=== PATIENT | male | born 1990 | race Caucasian/White ===

== ENCOUNTER 2016-08-25 10:18 | Emergency (ER) | payer MEDICAID, SELFPAY ==
--- NOTE | 2016-08-25 11:50 | EDDOCDS ---
Physician Documentation [facility] Name: Pramod Rizvi Age: 25 yrs Sex: Male : 1990 Arrival Date: 08/25/2016 Time: 10:18 Bed Triage 1 Private MD: NO PRIMARY PHYSICIAN, . Disposition: 08/25/16 11:42 Discharged to Home/Self Care. Impression: Dental caries, unspecified - with dental abscess #17 tooth. - Condition is Stable. - Discharge Instructions: Dental Abscess. - Prescriptions for Clindamycin HCl 300 mg Oral Capsule - take 1 capsule by ORAL route every 6 hours; 40 capsule. Ultram 50 mg Oral Tablet - take 1 tablet by ORAL route every 6 hours As needed MDD: 4 tabs; 12 tablet. magic mouthwash Mucous Membrane Solution - as directed 5 milliliters by ORAL route 4 times per day As needed gargle, swish, spit. Maalox, Viscous Lidocaine, Liquid Benadryl. 1:1:1; 237 milliliter. - Medication Reconciliation, Local Pharmacy Hours form. - Follow up: Emergency Department; When: As needed; Reason: Worsening of conditions. [facility]: [facility]; When: Call to arrange an appointment; Reason: Recheck today's complaints, Continuance of care, To establish care. - Problem is new. - Symptoms are unchanged. Historical: - Allergies: PENICILLINS (Rash); - Home Meds: 1. Tylenol Unknown Oral (Last dose: 08/24/2016) 2. Ibuprofen Unknown Oral (Last dose: 08/24/2016) - PMHx: none; - PSHx: none; - Social history: Smoking status: Patient uses tobacco products, current every day smoker. No barriers to communication noted, The patient speaks fluent Syrian, Speaks appropriately for age. - Family history: Not pertinent. - : The pt / caregiver states he / she is not on anticoagulants. Home medication list is obtained from the patient. - Exposure Risk Screening:: None identified. Vital Signs: 08/25 10:20 BP 129 / 69; Pulse 72; Resp 16; Temp 97.6(O); Pulse Ox 100% ; Weight 74.84 kg / 164.99 cmb lbs; Height 6 ft. 2 in. (187.96 cm); Pain 6/10; 10:20 Body Mass Index 21.18 (74.84 kg, 187.96 cm) cmb Signatures: Shae WilksRN RN kr3 Lilly Lane RN RN ivetted Giuliana Lane PA-C PA-C dt4 EDNAD
--- NOTE | 2016-08-25 11:50 | EDDOCDS ---
Nurse's Notes [facility] Name: Pramod Rizvi Age: 25 yrs Sex: Male : 1990 Arrival Date: 08/25/2016 Time: 10:18 Bed Triage 1 Private MD: NO PRIMARY PHYSICIAN, . Diagnosis: Dental caries, unspecified-with dental abscess #17 tooth Presentation: 08/25 10:22 Presenting complaint: Patient states: "I think I have have an infection in my gums." Pt ead reports left lower jaw swelling x 2 days, reports tender to touch. Pt states "I just don't have the money to go to the dentist and need an antibiotic. Adult Sepsis Screening: The patient does not have new or worsening altered mentation. Patient's respiratory rate is less than 22. Systolic blood pressure is greater than 100. Patient has a qSOFA score of 0- Negative Sepsis Screen. Suicide/Homicide risk assessment- the patient denies having any suicidal and/or homicidal ideations and does not present with any other emotional, behavioral or mental health complaints. Status: Patient is not a coordinator of genetic services or dependent. Transition of care: patient was not received from another setting of care. 10:22 Acuity: JOI Level 5 ead 10:22 Method Of Arrival: Walkin/Carried/Asstd ead Triage Assessment: 10:24 General: Appears in no apparent distress, Behavior is appropriate for age, cooperative. ead Pain: Location: left jaw and mouth Pain currently is 6 out of 10 on a pain scale. HIV screening NA for this visit Offered previously. Neurological: Level of Consciousness is awake, alert, obeys commands, Oriented to person, place, time. EENT: Reports pain in mouth and left jaw. Respiratory: Airway is patent Respiratory effort is even, unlabored. Derm: Skin is pink, warm & dry. Historical: - Allergies: PENICILLINS (Rash); - Home Meds: 1. Tylenol Unknown Oral (Last dose: 08/24/2016) 2. Ibuprofen Unknown Oral (Last dose: 08/24/2016) - PMHx: none; - PSHx: none; - Social history: Smoking status: Patient uses tobacco products, current every day smoker. No barriers to communication noted, The patient speaks fluent Ukrainian, Speaks appropriately for age. - Family history: Not pertinent. - : The pt / caregiver states he / she is not on anticoagulants. Home medication list is obtained from the patient. - Exposure Risk Screening:: None identified. Screenin:48 Screening information is obtained from the patient. Fall risk: No risks identified. kr3 Assistance ADL's: requires no assistance with activities of daily living. Abuse/DV Screen: The patient / caregiver reports he/she is: not in a situation that causes fear, pain or injury. Nutritional screening: No deficits noted. Advance Directives: Currently, there is no health care proxy. home support is adequate. Assessment: 11:48 General: Appears in no apparent distress, comfortable, Behavior is cooperative. Awake, kr3 alert, oriented. Awake, alert, oriented. Skin warm and dry. Moves all extremities. Respirations unlabored. No apparent distress. The patient / caregiver is instructed regarding the plan of care and ED course. Physical assessment to be completed by PA/AMBREEN. Vital Signs: 10:20 BP 129 / 69; Pulse 72; Resp 16; Temp 97.6(O); Pulse Ox 100% ; Weight 74.84 kg; Height 6 cmb ft. 2 in. (187.96 cm); Pain 6/10; 10:20 Body Mass Index 21.18 (74.84 kg, 187.96 cm) cmb Vitals: 10:20 Log In Time: August 25, 2016 at 10:18. b ED Course: 10:19 Patient visited by Liliana Brown. cmb 10:19 Patient moved to Waiting cmb 10:20 Patient name changed from Pramod\\S\\\\S\\Rizvi\\S\\ to Pramod\\S\\ \\S\\Rizvi. EDMS 10:20 NO PRIMARY PHYSICIAN, . is Private Physician. cmb 10:21 Patient moved to Pre RCE cmb 10:23 Triage Initiated ead 10:34 Patient moved to Triage 1 kr3 11:[address] [facility]. dt4 11:26 Renuka Trinidad MD is Attending Physician. dt4 11:[address] Giuliana Lane PA-C. dt4 11:38 [facility] is Referral Physician. dt4 11:49 Patient has correct armband on for positive identification. kr3 11:49 No IV's were initiated during this patient's visit. No procedures done that require kr3 assistance. Order Results: There are currently no results for this order. Outcome: 11:42 Discharge ordered by Provider. dt4 11:49 Discharge Assessment: patient administered narcotics - no. The following High Risk kr3 Discharge criteria are identified: None. Discharged to home ambulatory. Condition: stable. Discharge instructions given to patient, Instructed on discharge instructions, follow up and referral plans. medication usage, Demonstrated understanding of instructions, medications, Pt was receptive of discharge instructions/ teaching. Prescriptions given X 3. No special radiology studies were completed. Property sent home with patient. 11:49 Patient left the ED. kr3 Signatures: Dispatcher [employer] EDShae Day RN RN kr3 Boshart, Chelsea cmb Dunaway, Emily, RN RN ead Tschudi, Diane, PA-C PA-C dt4 PASCALE
--- NOTE | 2016-08-27 12:51 | EDDOCDS ---
Physician Documentation [facility] Name: Pramod Rizvi Age: 25 yrs Sex: Male : 1990 Arrival Date: 08/25/2016 Time: 10:18 Bed Triage 1 Private MD: NO PRIMARY PHYSICIAN, . Disposition: 08/25/16 11:42 Discharged to Home/Self Care. Impression: Dental caries, unspecified - with dental abscess #17 tooth. - Condition is Stable. - Discharge Instructions: Dental Abscess. - Prescriptions for Clindamycin HCl 300 mg Oral Capsule - take 1 capsule by ORAL route every 6 hours; 40 capsule. Ultram 50 mg Oral Tablet - take 1 tablet by ORAL route every 6 hours As needed MDD: 4 tabs; 12 tablet. magic mouthwash Mucous Membrane Solution - as directed 5 milliliters by ORAL route 4 times per day As needed gargle, swish, spit. Maalox, Viscous Lidocaine, Liquid Benadryl. 1:1:1; 237 milliliter. - Medication Reconciliation, Local Pharmacy Hours form. - Follow up: Emergency Department; When: As needed; Reason: Worsening of conditions. Follow [facility]: [facility]; When: Call to arrange an appointment; Reason: Recheck today's complaints, Continuance of care, To establish care. - Problem is new. - Symptoms are unchanged. Historical: - Allergies: PENICILLINS (Rash); - Home Meds: 1. Tylenol Unknown Oral (Last dose: 08/24/2016) 2. Ibuprofen Unknown Oral (Last dose: 08/24/2016) - PMHx: none; - PSHx: none; - Social history: Smoking status: Patient uses tobacco products, current every day smoker. No barriers to communication noted, The patient speaks fluent [place], Speaks appropriately for age. - Family history: Not pertinent. - : The pt / caregiver states he / she is not on anticoagulants. Home medication list is obtained from the patient. - Exposure Risk Screening:: None identified. Vital Signs: 08/25 10:20 BP 129 / 69; Pulse 72; Resp 16; Temp 97.6(O); Pulse Ox 100% ; Weight 74.84 kg / 164.99 cmb lbs; Height 6 ft. 2 in. (187.96 cm); Pain 6/10; 10:20 Body Mass Index 21.18 (74.84 kg, 187.96 cm) cmb MDM: 14:31 T-Sheet-- Draft Copy was scanned into [employer] and attached to record. gb Signatures: Lexis Elias, Reg Reg Shae Pavon,RN RN kr3 Lilly LaneRN RN eaGiuliana Ordaz, LAURITA SHAY dt4 The chart was reviewed and I authenticate all verbal orders and agree with the evaluation and treatment provided.Attachments: 14:31 T-Sheet-- Draft Copy gb Chart Complete MTDD
--- NOTE | 2016-08-27 12:51 | EDDOCDS ---
Nurse's Notes [facility] Name: Pramod Rizvi Age: 25 yrs Sex: Male : 1990 Arrival Date: 08/25/2016 Time: 10:18 Bed Triage 1 Private MD: NO PRIMARY PHYSICIAN, . Diagnosis: Dental caries, unspecified-with dental abscess #17 tooth Presentation: 08/25 10:22 Presenting complaint: Patient states: "I think I have have an infection in my gums." Pt ead reports left lower jaw swelling x 2 days, reports tender to touch. Pt states "I just don't have the money to go to the dentist and need an antibiotic. Adult Sepsis Screening: The patient does not have new or worsening altered mentation. Patient's respiratory rate is less than 22. Systolic blood pressure is greater than 100. Patient has a qSOFA score of 0- Negative Sepsis Screen. Suicide/Homicide risk assessment- the patient denies having any suicidal and/or homicidal ideations and does not present with any other emotional, behavioral or mental health complaints. Status: Patient is not a food service hotel runner or dependent. Transition of care: patient was not received from another setting of care. 10:22 Acuity: JOI Level 5 ead 10:22 Method Of Arrival: Walkin/Carried/Asstd ead Triage Assessment: 10:24 General: Appears in no apparent distress, Behavior is appropriate for age, cooperative. ead Pain: Location: left jaw and mouth Pain currently is 6 out of 10 on a pain scale. HIV screening NA for this visit Offered previously. Neurological: Level of Consciousness is awake, alert, obeys commands, Oriented to person, place, time. EENT: Reports pain in mouth and left jaw. Respiratory: Airway is patent Respiratory effort is even, unlabored. Derm: Skin is pink, warm & dry. Historical: - Allergies: PENICILLINS (Rash); - Home Meds: 1. Tylenol Unknown Oral (Last dose: 08/24/2016) 2. Ibuprofen Unknown Oral (Last dose: 08/24/2016) - PMHx: none; - PSHx: none; - Social history: Smoking status: Patient uses tobacco products, current every day smoker. No barriers to communication noted, The patient speaks fluent Faroese, Speaks appropriately for age. - Family history: Not pertinent. - : The pt / caregiver states he / she is not on anticoagulants. Home medication list is obtained from the patient. - Exposure Risk Screening:: None identified. Screenin:48 Screening information is obtained from the patient. Fall risk: No risks identified. kr3 Assistance ADL's: requires no assistance with activities of daily living. Abuse/DV Screen: The patient / caregiver reports he/she is: not in a situation that causes fear, pain or injury. Nutritional screening: No deficits noted. Advance Directives: Currently, there is no health care proxy. home support is adequate. Assessment: 11:48 General: Appears in no apparent distress, comfortable, Behavior is cooperative. Awake, kr3 alert, oriented. Awake, alert, oriented. Skin warm and dry. Moves all extremities. Respirations unlabored. No apparent distress. The patient / caregiver is instructed regarding the plan of care and ED course. Physical assessment to be completed by PA/AMBREEN. Vital Signs: 10:20 BP 129 / 69; Pulse 72; Resp 16; Temp 97.6(O); Pulse Ox 100% ; Weight 74.84 kg; Height 6 cmb ft. 2 in. (187.96 cm); Pain 6/10; 10:20 Body Mass Index 21.18 (74.84 kg, 187.96 cm) cmb Vitals: 10:20 Log In Time: August 25, 2016 at 10:18. b ED Course: 10:19 Patient visited by Liliana Brown. cmb 10:19 Patient moved to Waiting cmb 10:20 Patient name changed from Pramod\\S\\\\S\\Rizvi\\S\\ to Pramod\\S\\ \\S\\Rizvi. EDMS 10:20 NO PRIMARY PHYSICIAN, . is Private Physician. cmb 10:21 Patient moved to Pre RCE cmb 10:23 Triage Initiated ead 10:34 Patient moved to Triage 1 kr3 11:[address] [facility]. dt4 11:26 Renuka Trinidad MD is Attending Physician. dt4 11:[address] Giuliana Lane PA-C. dt4 11:38 [facility] is Referral Physician. dt4 11:49 Patient has correct armband on for positive identification. kr3 11:49 No IV's were initiated during this patient's visit. No procedures done that require kr3 assistance. 14:31 T-Sheet-- Draft Copy was scanned into [employer] and attached to record. gb Order Results: There are currently no results for this order. Outcome: 11:42 Discharge ordered by Provider. dt4 11:49 Discharge Assessment: patient administered narcotics - no. The following High Risk kr3 Discharge criteria are identified: None. Discharged to home ambulatory. Condition: stable. Discharge instructions given to patient, Instructed on discharge instructions, follow up and referral plans. medication usage, Demonstrated understanding of instructions, medications, Pt was receptive of discharge instructions/ teaching. Prescriptions given X 3. No special radiology studies were completed. Property sent home with patient. 11:49 Patient left the ED. kr3 Signatures: Dispatcher [employer] Authentication EDMS Lexis Elias, Reg Shae Robert,RN RN kr3 Liliana Brown Emily, RN RN ead Tschudi, Diane, PAThomas PA-C dt4 Chart Complete PASCALE
--- NOTE | 2016-08-27 12:51 | EDDOCDS ---
Physician Documentation [facility] Name: Pramod Rizvi Age: 25 yrs Sex: Male : 1990 Arrival Date: 08/25/2016 Time: 10:18 Bed Triage 1 Private MD: NO PRIMARY PHYSICIAN, . Disposition: 08/25/16 11:42 Discharged to Home/Self Care. Impression: Dental caries, unspecified - with dental abscess #17 tooth. - Condition is Stable. - Discharge Instructions: Dental Abscess. - Prescriptions for Clindamycin HCl 300 mg Oral Capsule - take 1 capsule by ORAL route every 6 hours; 40 capsule. Ultram 50 mg Oral Tablet - take 1 tablet by ORAL route every 6 hours As needed MDD: 4 tabs; 12 tablet. magic mouthwash Mucous Membrane Solution - as directed 5 milliliters by ORAL route 4 times per day As needed gargle, swish, spit. Maalox, Viscous Lidocaine, Liquid Benadryl. 1:1:1; 237 milliliter. - Medication Reconciliation, Local Pharmacy Hours form. - Follow up: Emergency Department; When: As needed; Reason: Worsening of conditions. Follow [facility]: [facility]; When: Call to arrange an appointment; Reason: Recheck today's complaints, Continuance of care, To establish care. - Problem is new. - Symptoms are unchanged. Historical: - Allergies: PENICILLINS (Rash); - Home Meds: 1. Tylenol Unknown Oral (Last dose: 08/24/2016) 2. Ibuprofen Unknown Oral (Last dose: 08/24/2016) - PMHx: none; - PSHx: none; - Social history: Smoking status: Patient uses tobacco products, current every day smoker. No barriers to communication noted, The patient speaks fluent Tajik, Speaks appropriately for age. - Family history: Not pertinent. - : The pt / caregiver states he / she is not on anticoagulants. Home medication list is obtained from the patient. - Exposure Risk Screening:: None identified. Vital Signs: 08/25 10:20 BP 129 / 69; Pulse 72; Resp 16; Temp 97.6(O); Pulse Ox 100% ; Weight 74.84 kg / 164.99 cmb lbs; Height 6 ft. 2 in. (187.96 cm); Pain 6/10; 10:20 Body Mass Index 21.18 (74.84 kg, 187.96 cm) cmb MDM: 14:31 T-Sheet-- Draft Copy was scanned into [employer] and attached to record. gb Signatures: Lexis Elias, Reg Reg Shae Pavon,RN RN kr3 Lilly LaneRN RN eaGiuliana Ordaz, LAURITA SHAY dt4 The chart was reviewed and I authenticate all verbal orders and agree with the evaluation and treatment provided.Attachments: 14:31 T-Sheet-- Draft Copy gb Chart Complete MTDD
== END 2016-08-25 11:49 | disposition home or self-care (01) ==
LOC: M ED 10:18
DX: K04.7 Periapical abscess without sinus (principal); K02.9 Dental caries, unspecified; F17.210 Nicotine dependence, cigarettes, uncomplicated; Z88.0 Allergy status to penicillin

== ENCOUNTER 2017-07-31 14:45 | Emergency (ER) | payer MEDICAID | END 2017-07-31 17:25 | disposition left against medical advice (07) | LOC: M ED 14:45 | DX: K08.89 Other specified disorders of teeth and supporting structures (principal); Z53.21 Procedure and treatment not carried out due to patient leaving prior to being seen by health care provider ==

== ENCOUNTER 2017-12-11 14:21 | Emergency (ER) | payer SELFPAY, MEDICAID, OTHER | END 2017-12-11 15:32 | disposition home or self-care (01) | LOC: M ED 14:21 | DX: K04.7 Periapical abscess without sinus (principal); K02.9 Dental caries, unspecified; R68.84 Jaw pain; K13.79 Other lesions of oral mucosa; H92.02 Otalgia, left ear; Z88.0 Allergy status to penicillin | CPT/HCPCS: 99282 ==

== ENCOUNTER 2019-02-10 11:27 | Emergency (ER) | payer SELFPAY ==
[~2019-02-10] VITALS: Ht 188 cm; Wt 75.0 kg
[~2019-02-10 11:27] MED LIST: CLEO300C2 PO; IBUP1TAB6 GT
[2019-02-10] MEDS ORDERED: ACET-840 PO (11:36)
[2019-02-10] MEDS ORDERED: ACETYLCYSTEINE 11,250 MG in D5W 250 ML IV ONE (12:15)
[2019-02-10 12:16] LABS: BASO # 0.1 10^3/uL (0.0-0.2); BASO % 0.5 % (0.0-1.0); EOS # 0.1 10^3/uL (0.0-0.50); EOS % 0.7 % (0.0-3.0); HEMATOCRIT 44.9 % (42.0-52.0); HEMOGLOBIN 14.7 g/dl (13.5-17.5); LYMPH # 1.8 10^3/uL (1.5-6.5); MEAN CORPUSCULAR HEMOGLOBIN 29.1 pg (27.0-33.0); MEAN CORPUSCULAR HGB CONC 32.7 g/dl (32.0-36.5); MEAN CORPUSCULAR VOLUME 88.9 fl (80.0-96.0); MONO % 5.7 % (0.0-5.0); NEUTROPHILS # 14.7 10^3/uL (1.8-7.7); NEUTROPHILS % 82.6 % (36.0-66.0); PLATELET COUNT, AUTOMATED 335 10^3/uL (150-450); RED BLOOD COUNT 5.05 10^6/uL (4.30-6.10); WHITE BLOOD COUNT 17.7 10^3/uL (4.0-10.0)
[2019-02-10 12:23] LABS: AMPHETAMINES LEVEL URINE NEGATIVE (NEGATIVE); BARBITURATES URINE NEGATIVE (NEGATIVE); BENZODIAZEPINES URINE NEGATIVE (NEGATIVE); CANNABINOIDS URINE NEGATIVE (NEGATIVE); COCAINE METABOLITE URINE NEGATIVE (NEGATIVE); METHADONE URINE NEGATIVE (NEGATIVE); OPIATES URINE NEGATIVE (NEGATIVE); PHENCYCLIDINE URINE NEGATIVE (NEGATIVE)
[2019-02-10 12:34] LABS: INR 1.15; PARTIAL THROMBOPLASTIN TIME 30.7 SECONDS (25.0-38.4); PROTHROMBIN TIME 14.4 SECONDS (11.8-14.0)
[2019-02-10 12:58] LABS: ACETAMINOPHEN LEVEL < 2.0 UG/ML (10.0-30.0); ALT/SGPT 12 U/L (12-78); BILIRUBIN,DIRECT 0.2 MG/DL (0.0-0.2); BILIRUBIN,TOTAL 0.8 MG/DL (0.2-1.0); BLOOD UREA NITROGEN 16 MG/DL (7-18); CALCIUM LEVEL 8.7 MG/DL (8.5-10.1); CARBON DIOXIDE LEVEL 27 MEQ/L (21-32); CHLORIDE LEVEL 108 MEQ/L (98-107); CPK CREATINE PHOSPHOKINASE 96 U/L (39-308); ETHYL ALCOHOL (ETHANOL) < 0.003 % (0.000-0.010); GLOMERULAR FILTRATION RATE > 60.0 (>60); GLUCOSE, FASTING 80 MG/DL (70-100); POTASSIUM SERUM 4.1 MEQ/L (3.5-5.1); SALICYLATE LEVEL 2.2 MG/DL (5.0-30.0); SODIUM LEVEL 141 MEQ/L (136-145); THYROID STIMULATING HORMONE 0.837 uIU/ML (0.358-3.740); TOTAL PROTEIN 7.7 GM/DL (6.4-8.2)
[2019-02-10 12:59] LABS: HEPATITIS B SURFACE ANTIGEN NEGATIVE (NEGATIVE)
[2019-02-10 13:27] LABS: HEPATITIS B CORE ANTIBODY IGM NEGATIVE (NEGATIVE); HEPATITIS C VIRUS ABY INDEX 0.1 INDEX (<0.8)
[2019-02-10 13:29] LABS: HEPATITIS A ANTIBODY IGM NEGATIVE (NEGATIVE)
[2019-02-10] MEDS ORDERED: ACETYLCYSTEINE 3,750 MG in D5W 500 ML IV ONE (13:30)
[2019-02-10] MEDS ORDERED: ONDANSETRON 4MG/2ML VIAL (J2405) IV ONE (14:00)
[2019-02-10] MEDS: MORPHINE 2 MG/ML 1ML SYRINGE (J2270) IV PRN ×2 (14:32→16:32)
[2019-02-10 16:14] LABS: INR 1.23; PARTIAL THROMBOPLASTIN TIME 29.7 SECONDS (25.0-38.4); PROTHROMBIN TIME 15.2 SECONDS (11.8-14.0)
[2019-02-10 16:16] LABS: ACETAMINOPHEN LEVEL < 2.0 UG/ML (10.0-30.0); ALBUMIN 3.7 GM/DL (3.2-5.2); ALT/SGPT 14 U/L (12-78); BILIRUBIN,DIRECT 0.1 MG/DL (0.0-0.2); BILIRUBIN,TOTAL 0.7 MG/DL (0.2-1.0); TOTAL PROTEIN 7.3 GM/DL (6.4-8.2)
[2019-02-10] MEDS ORDERED: CLINDAMYCIN 150 MG CAP PO ONE (17:00)
[2019-02-10] MEDS ORDERED: CLIN150C14 PO (17:25)
[2019-02-10 17:55] VITALS: BP 189/89
--- NOTE | 2019-02-10 20:38 | ECGEPIP ---
[facility] - ED Test Date: 2019-02-10 Pat Name: CHAN TRINIDAD Department: Room: - Gender: Male Lay Up Operator: CT : 1990 Requested By: Lamar Silverman Order Number: [id number] Reading MD: Lamar Silverman Measurements Intervals [place] Rate: 72 P: 66 AR: 176 QRS: 139 QRSD: 96 T: 63 QT: 386 QTc: 423 Interpretive Statements SINUS RHYTHM RIGHTWARD AXIS LEFT POSTERIOR FASCICULAR BLOCK NONSPECIFIC ST T WAVE CHANGES NO PRIOR ECG FOR COMPAIRSON Electronically Signed on 02-10-2019 20:37:44 EDT by Lamar Silverman
== END 2019-02-10 18:02 | disposition home or self-care (01) ==
LOC: M ED 11:27
DX: K04.7 Periapical abscess without sinus (principal); T39.1X1A Poisoning by 4-Aminophenol derivatives, accidental (unintentional), initial encounter; X58.XXXA Exposure to other specified factors, initial encounter; Y92.89 Other specified places as the place of occurrence of the external cause; Z88.0 Allergy status to penicillin; F17.210 Nicotine dependence, cigarettes, uncomplicated
CPT/HCPCS: 36415; 80048; 80076; 80307; 82550; 84443; 85025; 85610; 85730; 86705; 86709; 86803; 87340; 93005; 93041; 94760; 96365; 96366; 96375; 96376; 99285; G0480; J0132; J2270; J2405